=== PATIENT | male | born 1975 | race Caucasian/White ===

== ENCOUNTER 2017-09-07 14:02 | Emergency (ER) | payer BC, OTHER ==
[2017-09-07 14:19] VITALS: BP 132/89; TEMP 97.6; O2SAT 95
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
--- NOTE | 2017-09-07 14:58 | RAD ---
EXAM DESCRIPTION: Foot,Right 3 Views CLINICAL HISTORY: 41 years Male, pain COMPARISON: None. FINDINGS: 3 views of the right foot show nondisplaced fractures involving the bases of the second, third and fourth metatarsals without intra-articular extension. No additional fracture or malalignment is seen. No radiopaque foreign body or soft tissue gas. IMPRESSION: Nondisplaced fractures involving the bases of the second, third and fourth metatarsals without intra-articular extension. Electronically signed by: Thaddeus Velasquez MD 09/07/2017 2:57 PM [facility]
[2017-09-07] MEDS ORDERED: HYDROcodone 10MG/APAP 325MG 1 EA TAB PO ONE (15:29)
== END 2017-09-07 15:48 | disposition home or self-care (01) ==
LOC: ER 14:02
DX: S97.81XA Crushing injury of right foot, initial encounter (principal); S92.301A Fracture of unspecified metatarsal bone(s), right foot, initial encounter for closed fracture; V04.00XA Pedestrian on foot injured in collision with heavy transport vehicle or bus in nontraffic accident, initial encounter; Y92.89 Other specified places as the place of occurrence of the external cause; Y99.0 Civilian activity done for income or pay

== ENCOUNTER → 2019-04-25 | Outpatient (CLI) | payer OTHER | LOC: GMAL 10:19 | PROVIDERS: ATTEND Family Medicine | DX: Z00.00 Encounter for general adult medical examination without abnormal findings (principal) ==

== ENCOUNTER 2020-07-19 02:06 | Emergency (ER) | payer OTHER ==
[2020-07-19 02:19] VITALS: TEMP 96.9
[2020-07-19] MEDS ORDERED: TETRACAINE HCL 0.5% OPHTH SOL 1 DROP ONE (02:19)
[2020-07-19] MEDS ORDERED: FLUORESCEIN SODIUM OPHTH STRIP ONE (02:19)
--- NOTE | 2020-07-19 02:29 | ED.PDOC ---
History of Present Illness - General Chief Complaint: Eye Problems Stated Complaint: left eye pain Time Seen by Provider: 07/19/20 02:09 - History of Present Illness Initial Comments: Pleasant 44 yo M with no known pmh woke up this morning and felt like he had an eyelash in his eye. tried washing it out, but continued to feel irritated so came in for evaluation. no known fb. no change in vision. does not wear contacts. Allergies/Adverse Reactions: Allergies NO KNOWN ALLERGY Allergy (Verified 09/07/17 14:19) Review of Systems - Review of Systems Constitutional: Denies: chills, fever EENTM: States: eye pain, tearing. Denies: blurred vision, throat pain Respiratory: Denies: cough, short of breath Cardiology: Denies: chest pain, palpitations Gastrointestinal/Abdominal: Denies: abdominal pain, nausea, vomiting Genitourinary: Denies: discharge, frequency Musculoskeletal: Denies: back pain Skin: Denies: change in color, rash Neurological: Denies: headache, numbness, paresthesia, tremors, weakness Endocrine: Denies: unexplained weight gain, unexplained weight loss Hematologic/Lymphatic: Denies: easy bleeding, easy bruising Past Medical History (General) - Patient Medical History Hx Seizures: No Hx Stroke: No Hx Dementia: No Hx Asthma: No Hx of COPD: No Hx Cardiac Disorders: No Hx Congestive Heart Failure: No Hx Pacemaker: No Hx Hypertension: No Hx Thyroid Disease: No Hx Diabetes: No Hx Gastroesophageal Reflux: No Hx Renal Disease: No Hx Cancer: No Hx of HIV: No Hx Hepatitis C: No Hx MRSA: No Surgical History: other - Vaccination History Hx Tetanus, Diphtheria Vaccination: No Hx Influenza Vaccination: No Hx Pneumococcal Vaccination: No - Social History Hx Tobacco Use: Yes - half a pack a day Hx Chewing Tobacco Use: No Hx Alcohol Use: Yes Hx Substance Use: No Hx Substance Use Treatment: No Hx Depression: No Feels Threatened In Home Enviroment: No Feels Threatened In a Relationship: No Hx Physical Abuse: No Hx Emotional Abuse: No Family Medical History - Family History Father Family History: Unknown Living Status: Unknown Physical Exam - Physical Exam General Appearance: Alert, Comfortable, No apparent distress Eye Exam: right normal, left other - conjuncitval irritation, no fb noted, area flushed with saline. fluorescein staining showed 1mm corneal abrasian and inferiormedial pole of cornea. Ear Exam: bilateral ear: auricle normal, canal normal, TM normal Nasal Exam: normal inspection Throat Exam: normal mouth inspection Neck: non-tender, full range of motion, supple, normal inspection Cardiovascular/Respiratory: regular rate, rhythm, normal peripheral pulses, normal breath sounds, no respiratory distress Abdominal Exam: non-tender Neurologic: no motor/sensory deficits, alert, normal mood/affect, oriented x 3 Skin Exam: normal color, warm/dry Progress - Progress Progress: 07/19/20 03:20 pain improved after examination. All questions were answered, and they express understanding of my assessment and the plan. They have been instructed to return if their symptoms worsen, and have been asked to follow up with their primary care physician and ophthalmology to recheck today's presenting complaint. return precautions given. I have reviewed medication, benefits, alternatives and side effects. Patient decided to proceed with medication.patient was discharged with cipro drops 2 drops every 6 hours for 5 days. Samantha Daniels DO #[id number] 07/19/20 03:22 Departure - Departure Clinical Impression: Corneal abrasion, left Qualifiers: Encounter type: initial encounter Qualified Code(s): S05.02XA - Injury of conjunctiva and corneal abrasion without foreign body, left eye, initial encounter Time of Disposition: :31 Disposition: Discharge to Home or Self Care Departure Forms: ED Discharge - Pt. Copy, Patient Portal Self Enrollment Instructions: DI for Eye Pain, Corneal Abrasion (DC) Diet: resume usual diet Activity: ambulate only with walker Referrals: Yakov Rodriguez III, MD [Primary Care Provider] - 1-2 Days VIOLETTE MONTOYA [Referring] - 1-2 Days
[2020-07-19] MEDS ORDERED: CIPROFLOXACIN 0.3% OPHTH SOL 1 DROP ONE (02:42)
[2020-07-19] MEDS: ERYTHROMYCIN OPHTH OINT 1 APPLIC LEFT_EYE ONE (02:43)
[2020-07-19] MEDS: CIPROFLOXACIN 0.3% OPHTH SOL 1 DROP LEFT_EYE ONE (02:44)
[2020-07-19 02:58] VITALS: BP 147/94; O2SAT 95
== END 2020-07-19 02:57 | disposition home or self-care (01) ==
LOC: ER 02:06
DX: S05.02XA Injury of conjunctiva and corneal abrasion without foreign body, left eye, initial encounter (principal); X58.XXXA Exposure to other specified factors, initial encounter; Y92.9 Unspecified place or not applicable